=== PATIENT | male | born 1995 | race African-American/Black ===

== ENCOUNTER 2018-01-25 11:04 | Emergency (ER) | payer SELFPAY ==
[~2018-01-25] VITALS: Ht 172.7 cm; Wt 82.6 kg
[2018-01-25] MEDS ORDERED: ROBITUSSIN100 MG/5 M PO (13:25)
[2018-01-25] MEDS ORDERED: PREDNISONE20 MG PO (13:25)
[2018-01-25] MEDS ORDERED: FLONASE16 G1 BOTH NARES (13:25)
[2018-01-25 14:12] VITALS: BP 121/77
== END 2018-01-25 14:14 | disposition home or self-care (01) ==
LOC: EME 11:04
DX: J06.9 Acute upper respiratory infection, unspecified (principal); J02.9 Acute pharyngitis, unspecified; H92.09 Otalgia, unspecified ear; R11.0 Nausea; R19.7 Diarrhea, unspecified; Z88.0 Allergy status to penicillin; F17.200 Nicotine dependence, unspecified, uncomplicated
CPT/HCPCS: 71046; 87651 90; 99281; 99283